=== PATIENT | male | born 2000 | race Caucasian/White ===

== ENCOUNTER 2024-11-26 15:42 | Emergency (ER) | payer BC ==
[2024-11-26] MEDS: Take Home: Clindamycin HCl 150 MG, 12 Cap Pack PO ONE (16:07)
== END 2024-11-26 16:07 | disposition home or self-care (01) ==
LOC: EDBD → DL.ED 15:42
DX: R68.84 Jaw pain (principal); Z88.1 Allergy status to other antibiotic agents
CPT/HCPCS: 99283; A9270